=== PATIENT | male | born 1975 | race Caucasian/White ===

== ENCOUNTER → 2024-06-14 08:24 | Outpatient (REF) | payer OTHER, SELFPAY | LOC: RAD 08:24 | PROVIDERS: ATTENDING PHYSICIAN Nurse Practitioner Family; FAMILY PHYSICIAN Physician Assistant Medical | DX: M77.11 Lateral epicondylitis, right elbow (principal) | CPT/HCPCS: 73080 ==

== ENCOUNTER 2025-02-22 06:30 | Day surgery (SDC) | payer OTHER, SELFPAY | END 2025-02-22 13:36 | disposition home or self-care (01) | LOC: GI 06:30 | PROVIDERS: ATTENDING PHYSICIAN Internal Medicine | DX: Z12.11 Encounter for screening for malignant neoplasm of colon (principal); Z86.0101 Personal history of adenomatous and serrated colon polyps; K64.9 Unspecified hemorrhoids; K63.5 Polyp of colon | CPT/HCPCS: 45380; 88305 ==